=== PATIENT | male | born 1940 | race Caucasian/White ===

== ENCOUNTER 2020-07-20 20:32 | Emergency (ER) | payer MEDICARE, OTHER ==
[~2020-07-20 20:32] MED LIST: ASPIRIN CHEWABL81 MG PO; CLARITIN10 MG PO; FLAXSEED-FISH-400 MG PO; GLUCOPHAGE500 MG PO; HYTRIN CAP 1 MG1 MG PO; IMDUR ER TAB 3030 MG PO; LOPRESSOR 25 MG25 MG PO; LOVASTATIN40 MG PO; PRINIVIL10 MG PO; RANEXA500 MG PO; TYLENOL325 MG PO; VITAMIN B COMP1 EAC1 PO; VITAMIN B-121000 MCG PO; VITAMIN D-40400 UNIT PO
[2020-07-20 21:35] LABS: HEMOGLOBIN 14.6 gm/dl (14.0-17.5); RED BLOOD COUNT 4.81 M/UL (4.20-5.50); WHITE BLOOD COUNT 4.8 K/UL (4.5-11.0)
[2020-07-20 22:19] LABS: BUN/CREATININE RATIO 17 (0-10)
[2020-07-20] MEDS ORDERED: VIBRAMYCIN 100100 MG PO (23:28)
== END 2020-07-21 | disposition admitted as inpatient to this hospital (09) ==
LOC: ER1 20:32
PROVIDERS: Emergency Medicine
DX: S30.860A Insect bite (nonvenomous) of lower back and pelvis, initial encounter (principal); R10.9 Unspecified abdominal pain; I10 Essential (primary) hypertension; Z87.442 Personal history of urinary calculi; E78.5 Hyperlipidemia, unspecified; Z91.013 Allergy to seafood; W57.XXXA Bitten or stung by nonvenomous insect and other nonvenomous arthropods, initial encounter; Z20.822 Contact with and (suspected) exposure to COVID-19
CPT/HCPCS: 0240U; 71045; 80053; 81001; 82550; 82553; 83605; 83735; 83874; 83880; 84100; 84484; 85025; 85610; 85730; 87040; 87086; 93005; 99284

== ENCOUNTER 2020-09-03 10:43 | Emergency (ER) | payer MEDICARE, OTHER ==
[~2020-09-03 10:43] MED LIST changes: +VIBRAMYCIN 100100 MG PO
[2020-09-03] MEDS ORDERED: HYDROCODON-ACE1 EAC4 PO (15:40)
== END 2020-09-03 15:59 | disposition home or self-care (01) ==
LOC: ER1 10:43
DX: S70.02XA Contusion of left hip, initial encounter (principal); W17.89XA Other fall from one level to another, initial encounter; Y92.096 Garden or yard of other non-institutional residence as the place of occurrence of the external cause
CPT/HCPCS: 73502; 73700; 99284

== ENCOUNTER → 2021-05-21 | Outpatient (CLI) | payer MEDICARE, OTHER ==
[~2021-05-21] MED LIST changes: +HYDROCODON-ACE1 EAC4 PO
== END ==
LOC: EXRD 08:35
DX: M25.561 Pain in right knee (principal); M25.511 Pain in right shoulder; M17.12 Unilateral primary osteoarthritis, left knee
CPT/HCPCS: 73030; 73564

== ENCOUNTER 2021-10-04 17:36 | Emergency (ER) | payer MEDICARE, OTHER ==
[2021-10-04] MEDS ORDERED: BACITRACIN ZIN1 EAC1 TP (21:24)
== END 2021-10-04 21:28 | disposition home or self-care (01) ==
LOC: ER1 17:36
DX: S61.310A Laceration without foreign body of right index finger with damage to nail, initial encounter (principal); Z23 Encounter for immunization; W27.0XXA Contact with workbench tool, initial encounter
CPT/HCPCS: 73130; 90471; 90715; 99283